=== PATIENT | female | born 1955 | race American Indian/Alaskan Native ===

== ENCOUNTER 2018-05-26 06:11 | Emergency (ER) | payer MEDICARE ==
--- NOTE | 2018-05-26 06:37 | Emergency Department Report ---
HPI - General Time Seen by Provider: 05/26/18 06:26 - [facility] HPI: Room 18 The patient is a 63-year-old female presenting with a chief complaint of altered mental status. Per EMS the patient's last known well time was approximately 2 days ago. Family went to check on her this morning and found her unresponsive in bed. EMS states the patient has been unresponsive to them throughout transport. Patient was found to be hypertensive. Upon arrival to the ED the patient was found to have a leftward gaze, hypertension and a decreased gag reflex and subsequently the decision to intubate using RSI with lidocaine was made Location: Mental state Duration: [See above] Quality: Obtunded Severity: Severe Modifying factors: [see above] Context: [see above] Mode of transportation: [not driving] ED Past Medical Hx - Past Medical History Hx Hypertension: Yes (?) Hx Diabetes: Yes - Surgical History Past Surgical History?: No - Family History Family history: other (unknown) - Social History Smoking Status: Unknown if ever smoked ED Review of Systems ROS: Stated complaint: AMS Other details as noted in HPI Comment: Unobtainable due to pts medical conditions Physical Exam - Physical Exam Physical Exam: GENERAL: The patient is well-developed well-nourished female lying on stretcher obtunded with leftward gaze. [] HEENT: Normocephalic. Atraumatic. Leftward gaze. Right subconjunctival hemorrhage. Pupils 3 mm bilaterally unable to appreciate response with bright room. Patient has moist mucous membranes. NECK: Supple. Trachea midline CHEST/LUNGS: Clear to auscultation. There is no respiratory distress noted. HEART/CARDIOVASCULAR: Regular. There is tachycardia. There is no gallop rub or murmur. ABDOMEN: Abdomen is soft, nontender. Patient has normal bowel sounds. There is no abdominal distention. SKIN: There is no rash. There is no edema. There is no diaphoresis. NEURO: The patient is grossly obtunded with a severely decreased gag reflex. Right upper extremity flexed and drawn in to the body (decorticate?). GCS 5 MUSCULOSKELETAL: There is no evidence of acute injury. NIHSS= 10+ LOC a. Alert= 0 Not alert but arousable to minor stimuli=1 Not alert requires repeated or strong stimuli to move= 2 (+)Responds only reflex motor or unresponsive=3 b. asks month and age answers both correctly= 0 answers one correctly= 1 (+)answers neither correctly= 2 Best Gaze normal= 0 abnormal in one or both but forced deviation or total paresis absent= 1 (+)forced deviation or total gaze paresis= 2 Visual no visual loss= 0 partial hemianopia= 1 complete hemianopia= 2 bilateral hemianopia= 3 Facial Palsy normal= 0 minor paralysis= 1 partial paralysis= 2 complete paralysis= 3 Motor Arm no drift= 0 drift before 10 secs but doesnt hit bed= 1 some effort against gravity= 2 no effort against gravity= 3 no movement= 4 Motor leg no drift= 0 drift before 5 secs but doesnt hit bed= 1 drifts to bed before 5 secs= 2 no effort against gravity= 3 no movement= 4 Limb ataxia absent=0 present in one limb= 1 present in two limbs= 2 Sensory normal= 0 mild sensory loss= 1 severe (unaware of being touched)= 2 Best language mild/some loss of fluency= 1 severe= 2 (+)mute= 3 Dysarthria normal= 0 slurs some words= 1 severe/unintelligible= 2 Extinction and Inattention no abnormality= 0 visual, tactile, auditory or personal inattention= 1 profound (doesnt recognize own hand or orients to only one side= 2 ED Course - Consultations Consultation #1: 05/26/18 06:54 [facility] transfer line called 05/26/18 07:31 Case discussed with him see a neurosurgeon Dr Mckinney. Will accept patient in transfer. Recommends giving mannitol 25 g IV and Decadron 10 mg iv. Keppra not necessary at this time - Intubation Sedative: Etomidate Mg Given: 20 Paralytic: Succinylcholine Mg Given: 100 (patient was also administered lidocaine 100 mg IV) Laryngoscope: Raghavendra Size: 3 ET Tube Size: 7 Tube Secured Depth (cm): 21 Tube Secured Location: lips Tube Placement Confirmation: visualized tube passing t, equal breath sounds bilat, no breath sounds over epi, confirmation by capnometr Patient Tolerated Procedure: no complications Intubation Complications: none ED Medical Decision Making - Lab Data Result diagrams: 05/26/18 06:32 05/26/18 06:32 Laboratory Tests 05/26/18 05/26/18 05/26/18 06:23 06:32 06:32 WBC 10.7 RBC 6.11 H Hgb 15.3 H Hct 46.4 H MCV 76 L MCH 25 L MCHC 33 RDW 16.7 H Plt Count 361 Lymph % (Auto) 9.5 L [place] % (Auto) 3.3 Eos % (Auto) 0.0 Baso % (Auto) 0.7 Lymph # 1.0 L [place] # 0.4 Eos # 0.0 Baso # 0.1 Seg Neutrophils % 86.5 H Seg Neutrophils # 9.2 H PT 13.0 INR 0.94 APTT 23.0 L POC ABG pH POC ABG pCO2 POC ABG pO2 POC ABG HCO3 POC ABG Total CO2 POC ABG O2 Sat POC ABG Base Excess FiO2 Sodium Potassium Chloride Carbon Dioxide Anion Gap BUN Creatinine Estimated GFR BUN/Creatinine Ratio Glucose POC Glucose 159 H Calcium Total Bilirubin AST ALT Alkaline Phosphatase Total Creatine Kinase CK-MB (CK-2) CK-MB (CK-2) Rel Index Troponin T Total Protein Albumin Albumin/Globulin Ratio TSH Free T4 Plasma/Serum Alcohol 05/26/18 05/26/18 05/26/18 06:32 06:32 06:32 WBC RBC Hgb Hct MCV MCH MCHC RDW Plt Count Lymph % (Auto) [place] % (Auto) Eos % (Auto) Baso % (Auto) Lymph # [place] # Eos # Baso # Seg Neutrophils % Seg Neutrophils # PT INR APTT POC ABG pH POC ABG pCO2 POC ABG pO2 POC ABG HCO3 POC ABG Total CO2 POC ABG O2 Sat POC ABG Base Excess FiO2 Sodium 143 Potassium 5.4 H Chloride 98.6 Carbon Dioxide 27 Anion Gap 23 BUN 29 H Creatinine 1.3 H Estimated GFR 50 BUN/Creatinine Ratio 22 Glucose 183 H POC Glucose Calcium 10.2 Total Bilirubin 0.30 AST 47 H ALT 78 H Alkaline Phosphatase 128 Total Creatine Kinase 390 H CK-MB (CK-2) 5.1 H CK-MB (CK-2) Rel Index 1.3 Troponin T < 0.010 Total Protein 8.5 H Albumin 4.4 Albumin/Globulin Ratio 1.1 TSH 0.030 L Free T4 1.69 H Plasma/Serum Alcohol < 0.01 05/26/18 07:07 WBC RBC Hgb Hct MCV MCH MCHC RDW Plt Count Lymph % (Auto) [place] % (Auto) Eos % (Auto) Baso % (Auto) Lymph # [place] # Eos # Baso # Seg Neutrophils % Seg Neutrophils # PT INR APTT POC ABG pH 7.499 H POC ABG pCO2 39.4 POC ABG pO2 198 H POC ABG HCO3 30.7 POC ABG Total CO2 32 POC ABG O2 Sat 100 POC ABG Base Excess 7 FiO2 50 Sodium Potassium Chloride Carbon Dioxide Anion Gap BUN Creatinine Estimated GFR BUN/Creatinine Ratio Glucose POC Glucose Calcium Total Bilirubin AST ALT Alkaline Phosphatase Total Creatine Kinase CK-MB (CK-2) CK-MB (CK-2) Rel Index Troponin T Total Protein Albumin Albumin/Globulin Ratio TSH Free T4 Plasma/Serum Alcohol - EKG Data -: EKG Interpreted by Me EKG shows normal: sinus rhythm Rate: tachycardia (129 bpm) - EKG Data When compared to previous EKG there are: previous EKG unavailable Interpretation: nonspecific ST-T wave sofi (ST depressions in leads V3, V4, V5, V6) - Radiology Data Radiology results: report reviewed (CT head, chest x-ray), image reviewed (CT head, chest x-ray) interpreted by me: Chest x-ray-ET tube in appropriate position. No pneumothorax, no focal infiltrates CT head (discussed with radiologist)-right cerebellar hemispheric mass with edema measuring approximately 4.5 cm. With partial compression of the fourth ventricle and proximal hydrocephalus - Differential Diagnosis hypertensive emergency, intracranial hemorrhage, intracranial mass Critical Care Time: Yes Critical care time in (mins) excluding proc time.: 30 Critical care attestation.: If time is entered above; I have spent that time in minutes in the direct care of this critically ill patient, excluding procedure time. ED Disposition Clinical Impression: Cerebellar mass, Obstructive hydrocephalus, Altered mental status, Hypertensive emergency, Hyperthyroidism Disposition: DC/TX-[id number] ANOTHER TYPE HLTHCARE Is pt being admited?: No Does the pt Need Aspirin: No Condition: Serious Instructions: Hypertension (ED) Referrals: PRIMARY CARE, [Primary Care Provider] - 3-5 Days Time of Disposition: 07:38 (awaiting transport)
--- NOTE | 2018-05-26 06:49 | Cat Scan Report ---
FINAL REPORT EXAM: CT HEAD/BRAIN WO CON HISTORY: hypertensive, obtunded TECHNIQUE: Routine axial imaging was obtained of the brain without IV contrast. There are no previous studies available for comparison. FINDINGS: In the posterior fossa there is an irregular area of vasogenic edema in the right cerebellar hemisphere measuring 4.4 cm x 4 cm compatible with a neoplasm. There is no evidence of hemorrhage. There is mass effect on the 4th ventricle with secondary obstructive hydrocephalus of the 3rd and lateral ventricles. There is associated hydrostatic edema around the ventricles. There is effacement of the basal cisterns secondary to the mass effect by the neoplasm. The visualized sinuses are clear. The mastoid air cells are well pneumatized. The calvarium appears intact. IMPRESSION: Irregular area of vasogenic edema in the right cerebellar hemisphere compatible with a neoplasm with partial compression of the 4th ventricle. Obstructive hydrocephalus involving the 3rd and lateral ventricles with hydrostatic edema around the ventricles. No evidence of intracranial hemorrhage. MRI of the brain is recommended for further evaluation.
[2018-05-26 06:51] LABS: Basophils # (Auto) 0.1 K/mm3 (0.0-0.1); Basophils % (Auto) 0.7 % (0.0-1.8); Hematocrit 46.4 % (30.3-42.9); Hemoglobin 15.3 gm/dl (10.1-14.3); Lymphocytes % (Auto) 9.5 % (13.4-35.0); Mean Corpuscular HGB Conc 33 % (30-34); Mean Corpuscular Volume 76 fl (79-97); Monocytes # (Auto) 0.4 K/mm3 (0.0-0.8); Monocytes % (Auto) 3.3 % (0.0-7.3); Platelet Count 361 K/mm3 (140-440); Red Blood Count 6.11 M/mm3 (3.65-5.03); Red Cell Distribution Width 16.7 % (13.2-15.2)
[2018-05-26 06:53] LABS: Mean Corpuscular Hemoglobin 25 pg (28-32)
--- NOTE | 2018-05-26 06:55 | XRay Report ---
FINAL REPORT EXAM: XR CHEST 1V AP HISTORY: unresponsive, status post intubation TECHNIQUE: A portable supine view the chest was obtained. FINDINGS: The heart size and mediastinum appear normal. The patient has been intubated with the tip of the ET tube 1 cm above the da. The lungs reveal increased density behind the head of the right clavicle. An occult lesion in the right upper lobe cannot be excluded. Pleural fluid is not seen. The lungs are not congested. The bones and soft tissues otherwise appear well maintained IMPRESSION: Satisfactory intubation with the tip of the ET tube 1 cm above the da. Increased density superimposed over the head of the right clavicle. As to whether this is related to the clavicle head or there is an occult lesion behind in the right upper lobe is uncertain. Computed tomography of the chest is recommended for definitive evaluation.
[2018-05-26 07:01] LABS: INR 0.94 (0.87-1.13)
[2018-05-26 07:10] LABS: Creatine Kinase MB 5.1 ng/mL (0.0-4.0)
[2018-05-26 07:14] LABS: Alanine Aminotransferase 78 units/L (7-56); Albumin 4.4 g/dL (3.9-5); BUN/Creatinine Ratio 22; Blood Urea Nitrogen 29 mg/dL (7-17); Calcium 10.2 mg/dL (8.4-10.2); Hemolysis Index 40
[2018-05-26 07:21] LABS: Free T4 (Free Thyroxine) 1.69 ng/dL (0.76-1.46)
[2018-05-26] MEDS ORDERED: DECADRON IV ONE (07:33)
[2018-05-26] MEDS ORDERED: OSMITROL IV ONE (07:33)
[2018-05-26] MEDS ORDERED: VIAFLEX EMPTY CONTAINER IV ONE (07:33)
[2018-05-26] MEDS ORDERED: CARDENE 50 MG in NACL 0.9% 250ML 230 ML IV SCH (08:00)
[2018-05-26 08:32] VITALS: BP 171/96
[2018-05-26] MEDS ORDERED: AMIDATE IV ONE (14:39)
[2018-05-26] MEDS ORDERED: XYLOCAINE CARDIAC IV ONE (14:39)
[2018-05-26] MEDS ORDERED: QUELICIN ONE (14:39)
== END 2018-05-26 08:32 | disposition other institution (70) ==
LOC: ED 06:11
DX: G91.1 Obstructive hydrocephalus (principal); I10 Essential (primary) hypertension; E05.90 Thyrotoxicosis, unspecified without thyrotoxic crisis or storm; I61.4 Nontraumatic intracerebral hemorrhage in cerebellum; E11.9 Type 2 diabetes mellitus without complications
CPT/HCPCS: 31500; 36415; 51702; 70450; 71045; 80053; 82140; 82550; 82553; 82803; 82962; 84439; 84443; 84484; 85025; 85610; 85730; 87070; 87205; 93005; 93010; 96365; 96375; 99291; G0480; J0330; J2001; J2150; J7050; 80320; 94002